=== PATIENT | female | born 1980 | race Caucasian/White ===

== ENCOUNTER 2017-03-22 20:56 | Emergency (ER) | payer SELFPAY ==
[~2017-03-22] VITALS: Ht 154.9 cm; Wt 68.0 kg
[2017-03-22 21:00] VITALS: BP_SYST 123
[2017-03-22 22:12] LABS: BILIRUBIN,URINE NEGATIVE (NEGATIVE); BLOOD, URINE NEGATIVE (NEGATIVE); CLARITY/URINE CLEAR (CLEAR); COLOR,URINE YELLOW (YELLOW); GLUCOSE,URINE NEGATIVE (NEGATIVE); KETONES,URINE NEGATIVE (NEGATIVE); LEUKOCYTE ESTERASE ,URINE 1+ (NEGATIVE); NITRITE, URINE NEGATIVE (NEGATIVE); PH,URINE 7.5 (5.0-8.0); PROTEIN URINE NEGATIVE (NEGATIVE); UROBILINOGEN,URINE 0.2 (0.2-1.0)
[2017-03-22 22:19] LABS: BACTERIA,URINE FEW /HPF (None Seen); RBC,URINE 0-3 /HPF (0-3)
[2017-03-22] MEDS ORDERED: NACL 0.9% 1,000 ML IV ONE ×2 (22:40→22:45)
[2017-03-22] MEDS ORDERED: ONDANSETRON HCL 4 MG/2 ML VIAL IVP ONE ×2 (22:45)
[2017-03-22] MEDS ORDERED: ACETAMINOPHEN 500 MG TABLET PO ONE (22:45)
[2017-03-22 23:23] LABS: BASOPHILS # (AUTO) 0.1 K/uL (0.0-0.2); EOSINOPHILS % (AUTO) 0.5 % (0.0-4.0); HEMATOCRIT 38.8 % (36-48); HEMOGLOBIN 13.1 g/dL (12.0-16.0); LYMPHOCYTES # (AUTO) 1.1 K/uL (1.0-5.5); LYMPHOCYTES % (AUTO) 19.9 % (20.5-51.5); MEAN CORPUSCULAR HEMOGLOBIN 31 pg (27-31); MEAN CORPUSCULAR HGB CONC 34 % (32-36); MEAN CORPUSCULAR VOLUME 93 fL (79.0-98.0); MONOCYTES # (AUTO) 0.1 K/uL (0.0-1.0); MONOCYTES % (AUTO) 2.5 % (1.7-9.3); NEUTROPHILS # (AUTO) 4.2 K/uL (1.8-7.7); NEUTROPHILS % (AUTO) 75.1 % (40.0-70.0); PLATELET COUNT (AUTO) 372 K/uL (130-430); RED BLOOD CELL COUNT(AUTO) 4.18 MIL/uL (4.2-6.2); RED CELL DISTRIBUTION WIDTH 12.3 % (9.0-15.0); WHITE BLOOD COUNT (AUTO) 5.5 K/uL (4.8-10.8)
[2017-03-22 23:35] LABS: CALCIUM 8.4 mg/dL (8.4-11.0); CREATININE 0.72 mg/dL (0.55-1.30); POTASSIUM 3.5 mmol/L (3.5-5.1); PROTHROMBIN TIME 10.4 SECS (9.5-12.5)
[2017-03-22 23:40] LABS: TOTAL BILIRUBIN 0.4 mg/dL (0.0-1.0)
[2017-03-23 01:10] VITALS: BP_SYST 100
== END 2017-03-23 01:10 | disposition home or self-care (01) ==
LOC: SED 20:56
DX: B34.9 Viral infection, unspecified (principal); N39.0 Urinary tract infection, site not specified; M25.50 Pain in unspecified joint
CPT/HCPCS: 36415; 80053; 81000; 81025; 82150; 83690; 85025; 85610; 85730; 86710; 87086; 96361; 96374; 99284; J2405; J7030

== ENCOUNTER 2020-09-19 18:37 | Emergency (ER) | payer BC, MEDICAID ==
[~2020-09-19] VITALS: Ht 154.9 cm; Wt 68.0 kg
--- NOTE | 2020-09-19 18:52 | NUR ---
Called patient x 1, no answer
--- NOTE | 2020-09-19 19:00 | NUR ---
Patient to ER bed 08 to gown for evaluation. Side rails up.
[2020-09-19 19:05] VITALS: BP_SYST 113
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
[2020-09-19 19:25] LABS: BILIRUBIN,URINE NEGATIVE (NEGATIVE); BLOOD, URINE 3+ (NEGATIVE); CLARITY/URINE CLEAR (CLEAR); GLUCOSE,URINE NEGATIVE (NEGATIVE); KETONES,URINE NEGATIVE (NEGATIVE); LEUKOCYTE ESTERASE ,URINE NEGATIVE (NEGATIVE); NITRITE, URINE NEGATIVE (NEGATIVE); PROTEIN URINE NEGATIVE (NEGATIVE); UROBILINOGEN,URINE 0.2 (0.2-1.0)
--- NOTE | 2020-09-19 19:25 | NUR ---
Dr Liu evaluating patient at bedside
[2020-09-19 19:31] LABS: BASOPHILS % (AUTO) 0.8 % (0.0-2.0); EOSINOPHILS # (AUTO) 0.2 K/uL (0.0-0.4); EOSINOPHILS % (AUTO) 2.8 % (0.0-4.0); HEMATOCRIT 39.2 % (36-48); HEMOGLOBIN 12.8 g/dL (12.0-16.0); MEAN CORPUSCULAR HEMOGLOBIN 31 pg (27-31); MEAN CORPUSCULAR HGB CONC 33 % (32-36); MEAN CORPUSCULAR VOLUME 94 fL (79.0-98.0); MONOCYTES # (AUTO) 0.4 K/uL (0.0-1.0); MONOCYTES % (AUTO) 7.1 % (1.7-9.3); NEUTROPHILS # (AUTO) 3.4 K/uL (1.8-7.7); NEUTROPHILS % (AUTO) 56.3 % (40.0-70.0); PLATELET COUNT (AUTO) 357 K/uL (130-430); RED BLOOD CELL COUNT(AUTO) 4.19 MIL/uL (4.2-6.2); RED CELL DISTRIBUTION WIDTH 13.3 % (9.0-15.0)
[2020-09-19 19:32] LABS: COLOR,URINE STRAW (YELLOW)
[2020-09-19 19:33] LABS: RBC,URINE 0-3 /HPF (0-3); WBC,URINE NONE SEEN /HPF (0-3)
[2020-09-19 19:34] LABS: BACTERIA,URINE FEW /HPF (None Seen); MUCUS,URINE None Seen /LPF (None Seen)
[2020-09-19] MEDS ORDERED: ACETAMINOPHEN 500 MG TABLET PO ONE (19:45)
[2020-09-19] MEDS ORDERED: ACETAMINOPHEN 500 MG TABLET ONE (19:53)
[2020-09-19 20:23] LABS: PROTHROMBIN TIME 10.4 SECS (9.5-12.5)
[2020-09-19 20:26] LABS: ANION GAP 16 (5-15); CALCIUM 8.6 mg/dL (8.4-11.0); CHLORIDE 107 mmol/L (98-107); CREATININE 0.69 mg/dL (0.55-1.30); GLUCOSE 112 mg/dL (70-99); POTASSIUM 3.7 mmol/L (3.5-5.1); SODIUM SERUM 145 mmol/L (136-145); UREA NITROGEN, BLOOD 11 mg/dL (8-21)
[2020-09-19 20:27] LABS: GFR AFRICAN AMERICAN 121 mL/min (>90)
[2020-09-19 20:32] LABS: ALANINE AMINOTRANSFERASE 20 U/L (12-78); ALBUMIN 3.9 g/dL (3.4-4.8); AMYLASE 50 U/L (0-100); ASPARTATE AMINOTRANSFERASE 20 U/L (10-37); LIPASE 165 U/L (73-393); TOTAL BILIRUBIN 0.2 mg/dL (0.0-1.0)
[2020-09-19 20:41] LABS: C-REACTIVE PROTEIN QUANT < 0.2 mg/dL (0-0.5)
[2020-09-19] MEDS ORDERED: IBUP-1969 PO (21:21)
[2020-09-19 21:34] VITALS: BP_SYST 113
--- NOTE | 2020-09-19 21:36 | NUR ---
Patient given written and verbal discharge instructions and verbalizes understanding. ER MD discussed with patient the results and treatment provided. Patient in stable condition. ID arm band removed. IV catheter removed intact and dressing applied, no active bleeding. Rx of Ibuprofen given. Patient educated on pain management and to follow up with PMD. Pain Scale 0/10 Opportunity for questions provided and answered. Medication side effect fact sheet provided.
== END 2020-09-19 21:36 | disposition home or self-care (01) ==
LOC: SED 18:37
DX: S30.1XXA Contusion of abdominal wall, initial encounter (principal); Z88.0 Allergy status to penicillin; W21.03XA Struck by baseball, initial encounter; Y93.89 Activity, other specified; Y92.89 Other specified places as the place of occurrence of the external cause; Y99.8 Other external cause status
CPT/HCPCS: 36415; 74177; 76376; 80053; 81000; 81025; 82150; 83605; 83690; 84703; 85025; 85610; 85730; 86140; 99285; Q9967

== ENCOUNTER 2020-09-23 16:05 | Emergency (ER) | payer BC ==
[~2020-09-23] VITALS: Ht 160 cm; Wt 59.0 kg
[2020-09-23 16:05] VITALS: BP_SYST 121
[~2020-09-23 16:05] MED LIST: IBUP-1969 PO
[2020-09-23] MEDS ORDERED: HYDROcodone/ACETAMIN 5-325 MG TAB (NORCO/ VICODIN) PO ONE (16:45)
[2020-09-23 16:57] LABS: MEAN CORPUSCULAR VOLUME 93 fL (79.0-98.0)
[2020-09-23 17:08] LABS: PROTHROMBIN TIME 9.9 SECS (9.5-12.5)
[2020-09-23 17:11] LABS: BASOPHILS % (AUTO) 0.6 % (0.0-2.0); EOSINOPHILS # (AUTO) 0.2 K/uL (0.0-0.4); EOSINOPHILS % (AUTO) 3.2 % (0.0-4.0); HEMATOCRIT 38.6 % (36-48); HEMOGLOBIN 12.8 g/dL (12.0-16.0); LYMPHOCYTES # (AUTO) 2.8 K/uL (1.0-5.5); LYMPHOCYTES % (AUTO) 44.9 % (20.5-51.5); MEAN CORPUSCULAR HEMOGLOBIN 31 pg (27-31); MEAN CORPUSCULAR HGB CONC 33 % (32-36); MONOCYTES # (AUTO) 0.5 K/uL (0.0-1.0); MONOCYTES % (AUTO) 7.2 % (1.7-9.3); NEUTROPHILS # (AUTO) 2.8 K/uL (1.8-7.7); NEUTROPHILS % (AUTO) 44.1 % (40.0-70.0); PLATELET COUNT (AUTO) 338 K/uL (130-430); RED BLOOD CELL COUNT(AUTO) 4.15 MIL/uL (4.2-6.2); RED CELL DISTRIBUTION WIDTH 13.3 % (9.0-15.0); WHITE BLOOD COUNT (AUTO) 6.3 K/uL (4.8-10.8)
[2020-09-23 17:13] LABS: CALCIUM 8.7 mg/dL (8.4-11.0); CREATININE 0.83 mg/dL (0.55-1.30); POTASSIUM 3.8 mmol/L (3.5-5.1)
[2020-09-23 17:22] LABS: ALBUMIN 3.6 g/dL (3.4-4.8); TOTAL BILIRUBIN 0.4 mg/dL (0.0-1.0)
[2020-09-23 17:39] LABS: C-REACTIVE PROTEIN QUANT 0.5 mg/dL (0-0.5)
[2020-09-23 18:19] VITALS: BP_SYST 121
== END 2020-09-23 18:19 | disposition home or self-care (01) ==
LOC: SED 16:05
DX: S30.1XXA Contusion of abdominal wall, initial encounter (principal); Z88.0 Allergy status to penicillin; Z79.899 Other long term (current) drug therapy; W21.03XA Struck by baseball, initial encounter; Y93.89 Activity, other specified; Y92.89 Other specified places as the place of occurrence of the external cause; Y99.8 Other external cause status
CPT/HCPCS: 36415; 74177; 76376; 80053; 83605; 85025; 85610; 85730; 86140; 99285; Q9967

== ENCOUNTER 2020-10-09 12:06 | Day surgery (SDC) | payer BC, SELFPAY ==
[2020-10-08 15:32] LABS: BASOPHILS % (AUTO) 0.5 % (0.0-2.0); EOSINOPHILS # (AUTO) 0.1 K/uL (0.0-0.4); EOSINOPHILS % (AUTO) 1.3 % (0.0-4.0); HEMATOCRIT 40.2 % (36-48); HEMOGLOBIN 13.3 g/dL (12.0-16.0); LYMPHOCYTES # (AUTO) 2.5 K/uL (1.0-5.5); LYMPHOCYTES % (AUTO) 38.4 % (20.5-51.5); MEAN CORPUSCULAR HEMOGLOBIN 31 pg (27-31); MEAN CORPUSCULAR HGB CONC 33 % (32-36); MEAN CORPUSCULAR VOLUME 93 fL (79.0-98.0); MONOCYTES # (AUTO) 0.5 K/uL (0.0-1.0); MONOCYTES % (AUTO) 7.2 % (1.7-9.3); NEUTROPHILS # (AUTO) 3.4 K/uL (1.8-7.7); NEUTROPHILS % (AUTO) 52.6 % (40.0-70.0); PLATELET COUNT (AUTO) 359 K/uL (130-430); RED BLOOD CELL COUNT(AUTO) 4.35 MIL/uL (4.2-6.2); RED CELL DISTRIBUTION WIDTH 13.6 % (9.0-15.0); WHITE BLOOD COUNT (AUTO) 6.4 K/uL (4.8-10.8)
[2020-10-08 15:47] LABS: PROTHROMBIN TIME 10.3 SECS (9.5-12.5)
[2020-10-08 15:48] LABS: ALBUMIN 3.9 g/dL (3.4-4.8); CALCIUM 8.9 mg/dL (8.4-11.0); CREATININE 0.9 mg/dL (0.55-1.30); TOTAL BILIRUBIN 0.6 mg/dL (0.0-1.0)
[~2020-10-09] VITALS: Ht 154.9 cm; Wt 68.0 kg
[2020-10-09] MEDS ORDERED: LR 1,000 ML IV.SOLN IV ONE (14:37)
[2020-10-09] MEDS ORDERED: fentaNYL CITRATE/PF 100 MCG/2 ML AMP IVP ONE (14:37)
[2020-10-09] MEDS ORDERED: DEXAMETHASONE SOD PHOSPHATE 4 MG/ML VIAL IVP ONE (14:37)
[2020-10-09] MEDS ORDERED: ceFAZolin SODIUM 1 GM VIAL IV ONE (14:37)
[2020-10-09] MEDS ORDERED: BUPIVACAINE /EPINEPHRINE/PF 0.5% 30 ML VIAL INJ ONE (14:37)
[2020-10-09] MEDS ORDERED: NS IRRIG SOLN 1000 ML IR ONE (14:37)
[2020-10-09] MEDS ORDERED: MIDAZOLAM HCL 5 MG/5 ML VIAL IVP ONE (14:37)
[2020-10-09] MEDS ORDERED: SEVOFLURANE 15 MIN GAS INH ONE (14:37)
[2020-10-09] MEDS ORDERED: METOCLOPRAMIDE HCL 10 MG/2 ML VIAL IVP ONE (14:37)
[2020-10-09] MEDS ORDERED: PROPOFOL 200MG/ 20ML VIAL (DIPRIVAN) IV ONE (14:37)
[2020-10-09] MEDS ORDERED: HYDROmorphone 1 MG/ML INJ. CARTRIDGE IVP PRN (15:15)
[2020-10-09] MEDS ORDERED: NALOXONE HCL 0.4 MG/ML AMP (NARCAN) IVP PRN (15:15)
[2020-10-09] MEDS ORDERED: HYDROmorphone 2 MG/ML VIAL IVP PRN (15:15)
[2020-10-09] MEDS ORDERED: ePHEDrine sulfate 50 MG/ML VIAL IVP PRN (15:15)
[2020-10-09] MEDS ORDERED: LR 1,000 ML IV SCH (15:15)
[2020-10-09] MEDS ORDERED: MEPERIDINE HCL/PF 25 MG/ML DISP.SYRIN IVP PRN (15:15)
[2020-10-09] MEDS ORDERED: MIDAZOLAM HCL 5 MG/5 ML VIAL IVP PRN (15:15)
[2020-10-09] MEDS ORDERED: ACETAMINOPHEN I.V. 1000 MG 100 ML IV ONE (15:16)
[2020-10-09] MEDS ORDERED: BUPIVACAINE LIPOSOME/PF 266 MG/20 ML VIAL INFIL ONE (15:20)
[2020-10-09] MEDS ORDERED: ACETAMINOPHEN 325 MG TABLET PO PRN (16:30)
[2020-10-09] MEDS ORDERED: HYDROcodone/ACETAMIN 5-325 MG TAB (NORCO/ VICODIN) PO PRN (16:30)
[2020-10-09 17:35] VITALS: BP_SYST 126
== END 2020-10-09 17:25 | disposition home or self-care (01) ==
LOC: SDS 12:06 → SMU 12:07 → SDS 17:25
PROVIDERS: ATTEND Surgery
DX: M79.81 Nontraumatic hematoma of soft tissue (principal); Z79.01 Long term (current) use of anticoagulants; Z79.899 Other long term (current) drug therapy
CPT/HCPCS: 11406; 36415; 80053; 84703; 85025; 85610; 85730; 87426; 88304; C9290; J0131; J0690; J1100; J2250; J2704; J2765; J3010; J3490; J7120

== ENCOUNTER 2022-03-03 05:57 | Emergency (ER) | payer BC ==
[~2022-03-03] VITALS: Ht 154.9 cm; Wt 71.2 kg
[2022-03-03 06:03] VITALS: BP_SYST 142
[2022-03-03] MEDS ORDERED: KETOROLAC TROMETHAMINE 30 MG VIAL IVP ONE (06:30)
[2022-03-03] MEDS ORDERED: NS 1000 ML IV.SOLN IV ONE (06:30)
[2022-03-03] MEDS ORDERED: DEXAMETHASONE SOD PHOSPHATE 10 MG/ML VIAL IVP ONE (06:45)
[2022-03-03] MEDS ORDERED: LOM2.5 PO (06:51)
[2022-03-03] MEDS ORDERED: DIPHENOXYLATE HCL/ATROP SULF 2.5 MG TAB PO ONE (07:00)
[2022-03-03 07:06] LABS: BASOPHILS % (AUTO) 0.6 % (0.0-2.0); EOSINOPHILS # (AUTO) 0.1 K/uL (0.0-0.4); EOSINOPHILS % (AUTO) 1.2 % (0.0-4.0); HEMATOCRIT 37.8 % (36-48); HEMOGLOBIN 12.6 g/dL (12.0-16.0); LYMPHOCYTES # (AUTO) 1.2 K/uL (1.0-5.5); LYMPHOCYTES % (AUTO) 14.1 % (20.5-51.5); MEAN CORPUSCULAR HEMOGLOBIN 32 pg (27-31); MEAN CORPUSCULAR HGB CONC 33 % (32-36); MEAN CORPUSCULAR VOLUME 96 fL (79.0-98.0); MONOCYTES # (AUTO) 0.4 K/uL (0.0-1.0); MONOCYTES % (AUTO) 4.5 % (1.7-9.3); NEUTROPHILS # (AUTO) 6.8 K/uL (1.8-7.7); NEUTROPHILS % (AUTO) 79.6 % (40.0-70.0); PLATELET COUNT (AUTO) 331 K/uL (130-430); RED BLOOD CELL COUNT(AUTO) 3.96 MIL/uL (4.2-6.2); RED CELL DISTRIBUTION WIDTH 13.4 % (9.0-15.0); WHITE BLOOD COUNT (AUTO) 8.5 K/uL (4.8-10.8)
[2022-03-03 07:23] LABS: INR 0.9 (0.8-1.2); PROTHROMBIN TIME 9.4 SECS (9.5-12.5)
[2022-03-03 07:27] LABS: ANION GAP 7 (5-15); CALCIUM 8.2 mg/dL (8.4-11.0); CHLORIDE 104 mmol/L (98-107); CREATININE 0.68 mg/dL (0.55-1.30); GLUCOSE 95 mg/dL (70-99); UREA NITROGEN, BLOOD 22 mg/dL (8-21)
[2022-03-03 07:28] LABS: GFR AFRICAN AMERICAN 122 mL/min (>90)
[2022-03-03 07:39] LABS: ALANINE AMINOTRANSFERASE 28 U/L (12-78); ALBUMIN 3.8 g/dL (3.4-4.8); ASPARTATE AMINOTRANSFERASE 24 U/L (10-37); TOTAL BILIRUBIN 0.5 mg/dL (0.0-1.0)
[2022-03-03 08:06] LABS: BILIRUBIN,URINE NEGATIVE (NEGATIVE); BLOOD, URINE NEGATIVE (NEGATIVE); CLARITY/URINE CLEAR (CLEAR); COLOR,URINE YELLOW (YELLOW); GLUCOSE,URINE NEGATIVE (NEGATIVE); KETONES,URINE NEGATIVE (NEGATIVE); LEUKOCYTE ESTERASE ,URINE NEGATIVE (NEGATIVE); NITRITE, URINE NEGATIVE (NEGATIVE); PROTEIN URINE NEGATIVE (NEGATIVE); UROBILINOGEN,URINE 0.2 (0.2-1.0)
== END 2022-03-03 08:45 | disposition home or self-care (01) ==
LOC: SED 05:57
DX: B34.9 Viral infection, unspecified (principal); E86.0 Dehydration; R19.7 Diarrhea, unspecified; R05.9 Cough, unspecified; R07.9 Chest pain, unspecified; R53.81 Other malaise; J45.909 Unspecified asthma, uncomplicated; Z88.0 Allergy status to penicillin; Z79.899 Other long term (current) drug therapy; Z20.822 Contact with and (suspected) exposure to COVID-19
CPT/HCPCS: 99284; 96374; 71045; 96361; 96375; 87426; 80053; 85025; 85610; 85730; 87040; 87086; 84484; 36415; 83605; 81003; 87804 ×2; J1100; J1885; J7030

== ENCOUNTER 2022-12-22 10:19 | Inpatient (IN) | payer BC ==
[~2022-12-22] VITALS: Ht 154.9 cm; Wt 72.6 kg
[~2022-12-22 10:19] MED LIST changes: +LOM2.5 PO
[2022-12-22 10:31] VITALS: BP_SYST 162; PULSE 93; RESP 18; TEMP 98; O2SAT 97
[2022-12-22] MEDS ORDERED: KETOROLAC TROMETHAMINE 30 MG VIAL IVP ONE (10:45)
[2022-12-22 10:59] LABS: BASOPHILS % (AUTO) 0.5 % (0.0-2.0); EOSINOPHILS # (AUTO) 0.2 K/uL (0.0-0.4); EOSINOPHILS % (AUTO) 2.7 % (0.0-4.0); HEMATOCRIT 40.3 % (36-48); HEMOGLOBIN 13.1 g/dL (12.0-16.0); LYMPHOCYTES # (AUTO) 3.5 K/uL (1.0-5.5); MEAN CORPUSCULAR HEMOGLOBIN 31 pg (27-31); MEAN CORPUSCULAR HGB CONC 32 % (32-36); MEAN CORPUSCULAR VOLUME 95 fL (79.0-98.0); MONOCYTES # (AUTO) 0.4 K/uL (0.0-1.0); MONOCYTES % (AUTO) 5.5 % (1.7-9.3); NEUTROPHILS # (AUTO) 3.5 K/uL (1.8-7.7); NEUTROPHILS % (AUTO) 45.3 % (40.0-70.0); PLATELET COUNT (AUTO) 337 K/uL (130-430); RED BLOOD CELL COUNT(AUTO) 4.24 MIL/uL (4.2-6.2); RED CELL DISTRIBUTION WIDTH 13.7 % (9.0-15.0); WHITE BLOOD COUNT (AUTO) 7.7 K/uL (4.8-10.8)
[2022-12-22 11:14] LABS: CALCIUM 8.7 mg/dL (8.4-11.0); CREATININE 0.77 mg/dL (0.55-1.30); POTASSIUM 3.8 mmol/L (3.5-5.1)
[2022-12-22] MEDS ORDERED: NACL 0.9% 1,000 ML IV ONE (11:15)
[2022-12-22] MEDS ORDERED: VANCOMYCIN HCL 1,000 MG in NS 250 ML IV ONE (11:15)
[2022-12-22 11:18] LABS: PROTHROMBIN TIME 10.2 SECS (9.5-12.5)
[2022-12-22 11:19] LABS: TOTAL BILIRUBIN 0.7 mg/dL (0.0-1.0); TOTAL PROTEIN, SERUM 7.3 g/dL (6.4-8.3)
[2022-12-22] MEDS ORDERED: ESCI10TA PO (11:29)
[2022-12-22] MEDS ORDERED: CIPR500T5 PO (11:29)
[2022-12-22] MEDS ORDERED: SULF1TAB48 PO (11:29)
[2022-12-22 11:33] LABS: BILIRUBIN,URINE NEGATIVE (NEGATIVE); BLOOD, URINE NEGATIVE (NEGATIVE); CLARITY/URINE Clear (CLEAR); COLOR,URINE YELLOW (YELLOW); GLUCOSE,URINE NEGATIVE (NEGATIVE); KETONES,URINE NEGATIVE (NEGATIVE); LEUKOCYTE ESTERASE ,URINE NEGATIVE (NEGATIVE); NITRITE, URINE NEGATIVE (NEGATIVE); PH,URINE 5.5 (5.0-8.0); PROTEIN URINE NEGATIVE (NEGATIVE); UROBILINOGEN,URINE 0.2 (0.2-1.0)
[2022-12-22] MEDS ORDERED: VANCOMYCIN HCL 1000 MG/VIAL IV ONE ×2 (11:51→11:59)
[2022-12-22] MEDS ORDERED: CIPROFLOXACIN LACT 400 MG/D5W 200 ML IV SCH (12:15)
[2022-12-22] MEDS ORDERED: CIPROFLOXACIN LACT 400 MG/D5W 200 ML IV ONE (13:13)
[2022-12-22] MEDS ORDERED: HYDROcodone/ACETAMIN 10-325 MG TAB PO ONE (16:45)
[2022-12-22 17:45] VITALS: BP_SYST 124; PULSE 97; RESP 16; TEMP 98.6; O2SAT 97
[2022-12-22 18:08] VITALS: BP_SYST 124; PULSE 97; RESP 16; TEMP 98.6; O2SAT 97
[2022-12-22] MEDS ORDERED: HYDROcodone/ACETAMIN 5-325 MG TAB (NORCO/ VICODIN) PO PRN (19:15)
[2022-12-22] MEDS ORDERED: HYDROcodone/ACETAMIN 10-325 MG TAB PO PRN (19:15)
[2022-12-22] MEDS ORDERED: LORazepam 2 MG/ML VIAL IVP PRN (19:15)
[2022-12-22] MEDS ORDERED: DIPHENOXYLATE HCL/ATROP SULF 2.5 MG TAB PO PRN (19:15)
[2022-12-22] MEDS ORDERED: NALOXONE HCL 0.4 MG/ML AMP (NARCAN) IVP PRN ×2 (19:15)
[2022-12-22] MEDS ORDERED: ONDANSETRON HCL 4 MG/2 ML VIAL IVP PRN (19:15)
[2022-12-22] MEDS ORDERED: ACETAMINOPHEN 325 MG TABLET PO PRN (19:30)
[2022-12-22 20:00] VITALS: BP_SYST 118; PULSE 66; RESP 17; TEMP 97.4; O2SAT 97; O2SAT 98
[2022-12-22] MEDS: CIPROFLOXACIN LACT 200 MG/D5W 100 ML IV SCH (21:20)
[2022-12-22] MEDS: NORMAL SALINE 5 ML DISP.SYRIN IVF SCH (22:00)
[2022-12-23] VITALS: BP_SYST 140; PULSE 73; RESP 18; TEMP 97.3; O2SAT 97
[2022-12-23] MEDS: ACETAMINOPHEN 325 MG TABLET PO PRN ×2 (02:17→11:10)
[2022-12-23 05:35] LABS: BASOPHILS % (AUTO) 0.6 % (0.0-2.0); EOSINOPHILS # (AUTO) 0.3 K/uL (0.0-0.4); EOSINOPHILS % (AUTO) 4.1 % (0.0-4.0); HEMATOCRIT 36.5 % (36-48); HEMOGLOBIN 11.8 g/dL (12.0-16.0); LYMPHOCYTES # (AUTO) 3.2 K/uL (1.0-5.5); LYMPHOCYTES % (AUTO) 43.9 % (20.5-51.5); MEAN CORPUSCULAR HEMOGLOBIN 31 pg (27-31); MEAN CORPUSCULAR HGB CONC 32 % (32-36); MEAN CORPUSCULAR VOLUME 96 fL (79.0-98.0); MONOCYTES # (AUTO) 0.4 K/uL (0.0-1.0); MONOCYTES % (AUTO) 6.2 % (1.7-9.3); NEUTROPHILS # (AUTO) 3.2 K/uL (1.8-7.7); NEUTROPHILS % (AUTO) 45.2 % (40.0-70.0); PLATELET COUNT (AUTO) 322 K/uL (130-430); RED CELL DISTRIBUTION WIDTH 13.7 % (9.0-15.0); WHITE BLOOD COUNT (AUTO) 7.2 K/uL (4.8-10.8)
[2022-12-23 05:44] LABS: CALCIUM 8.1 mg/dL (8.4-11.0); CREATININE 0.82 mg/dL (0.55-1.30); POTASSIUM 4.2 mmol/L (3.5-5.1)
[2022-12-23] MEDS: NORMAL SALINE 5 ML DISP.SYRIN IVF SCH ×3 (06:00→22:17)
[2022-12-23 07:00] VITALS: BP_SYST 120; PULSE 72; RESP 16; TEMP 98.5; O2SAT 96
[2022-12-23 09:00] VITALS: BP_SYST 120; PULSE 72; RESP 16; TEMP 98.5; O2SAT 96
[2022-12-23] MEDS: CITALOPRAM HYDROBROMIDE 20 MG TABLET PO SCH ×2 (09:00→10:59)
[2022-12-23] MEDS ORDERED: ESCITALOPRAM OXALATE 10 MG TABLET PO SCH (09:00)
[2022-12-23] MEDS: CIPROFLOXACIN LACT 200 MG/D5W 100 ML IV SCH (09:11)
[2022-12-23] MEDS ORDERED: CLINDAMYCIN HCL 150 MG CAPSULE PO ONE (12:30)
[2022-12-23] MEDS ORDERED: LACTOBACILLUS RHAMNOSUS GG 1 CAP CAPSULE PO ONE (12:30)
[2022-12-23] MEDS ORDERED: SACCHAROMYCES BOULARDII 250 MG CAPSULE (FLORASTOR) PO SCH (12:30)
[2022-12-23] MEDS ORDERED: CEFTAROLINE FOSAMIL ACETATE 600 MG in NS 250 ML IV ONE (13:00)
[2022-12-23] MEDS: CLINDAMYCIN HCL 150 MG CAPSULE PO SCH (19:50)
[2022-12-23 20:00] VITALS: BP_SYST 114; PULSE 68; RESP 17; TEMP 98.6; O2SAT 97; O2SAT 98
[2022-12-23] MEDS: CEFTAROLINE FOSAMIL ACETATE 600 MG in NS 250 ML IV SCH (21:45)
[2022-12-23] MEDS ORDERED: KETOROLAC TROMETHAMINE 15 MG VIAL IVP PRN (22:15)
[2022-12-23] MEDS: LACTOBACILLUS RHAMNOSUS GG 1 CAP CAPSULE PO SCH (22:16)
[2022-12-24] VITALS: BP_SYST 101; PULSE 90; RESP 17; TEMP 98.5; O2SAT 97
[2022-12-24] MEDS: CLINDAMYCIN HCL 150 MG CAPSULE PO SCH ×5 (00:02→23:27)
[2022-12-24] MEDS: NORMAL SALINE 5 ML DISP.SYRIN IVF SCH ×3 (05:20→21:02)
[2022-12-24 07:06] LABS: BASOPHILS % (AUTO) 0.6 % (0.0-2.0); EOSINOPHILS # (AUTO) 0.3 K/uL (0.0-0.4); EOSINOPHILS % (AUTO) 4.8 % (0.0-4.0); HEMOGLOBIN 12.1 g/dL (12.0-16.0); LYMPHOCYTES # (AUTO) 2.6 K/uL (1.0-5.5); LYMPHOCYTES % (AUTO) 42.1 % (20.5-51.5); MEAN CORPUSCULAR HEMOGLOBIN 31 pg (27-31); MEAN CORPUSCULAR HGB CONC 33 % (32-36); MEAN CORPUSCULAR VOLUME 96 fL (79.0-98.0); MONOCYTES # (AUTO) 0.4 K/uL (0.0-1.0); MONOCYTES % (AUTO) 6.7 % (1.7-9.3); NEUTROPHILS # (AUTO) 2.9 K/uL (1.8-7.7); NEUTROPHILS % (AUTO) 45.8 % (40.0-70.0); PLATELET COUNT (AUTO) 325 K/uL (130-430); RED BLOOD CELL COUNT(AUTO) 3.87 MIL/uL (4.2-6.2); RED CELL DISTRIBUTION WIDTH 13.7 % (9.0-15.0); WHITE BLOOD COUNT (AUTO) 6.2 K/uL (4.8-10.8)
[2022-12-24 07:46] LABS: ALBUMIN 3.4 g/dL (3.4-4.8); CALCIUM 8.4 mg/dL (8.4-11.0); CREATININE 0.81 mg/dL (0.55-1.30); POTASSIUM 4.4 mmol/L (3.5-5.1); TOTAL BILIRUBIN 0.3 mg/dL (0.0-1.0); TOTAL PROTEIN, SERUM 6.2 g/dL (6.4-8.3)
[2022-12-24 07:59] LABS: ERYTHROCYTE SEDIMENTATION RATE 4 MM/HR (0-20)
[2022-12-24 08:00] VITALS: BP_SYST 104; PULSE 76; RESP 18; TEMP 98.1; O2SAT 96; O2SAT 98
[2022-12-24] MEDS: LACTOBACILLUS RHAMNOSUS GG 1 CAP CAPSULE PO SCH ×2 (09:39→21:01)
[2022-12-24] MEDS: CEFTAROLINE FOSAMIL ACETATE 600 MG in NS 250 ML IV SCH ×2 (09:40→21:01)
[2022-12-24 12:00] VITALS: BP_SYST 106; PULSE 86; RESP 16; TEMP 98.4; O2SAT 98
[2022-12-24 16:29] VITALS: BP_SYST 105; PULSE 79; RESP 17; TEMP 98.2; O2SAT 97
[2022-12-24] MEDS ORDERED: HONEY WOUND DRESSING 1 EACH TP SCH (16:30)
[2022-12-24 19:00] VITALS: BP_SYST 103; PULSE 80; RESP 16; TEMP 97.9; O2SAT 97
[2022-12-24 20:00] VITALS: BP_SYST 119; PULSE 70; RESP 18; TEMP 98.4; O2SAT 97
[2022-12-24] MEDS: ACETAMINOPHEN 325 MG TABLET PO PRN (23:28)
[2022-12-25 01:06] VITALS: BP_SYST 126; PULSE 72; RESP 17; TEMP 97.5; O2SAT 97
[2022-12-25 05:31] LABS: ERYTHROCYTE SEDIMENTATION RATE 4 MM/HR (0-20)
[2022-12-25 05:34] LABS: BASOPHILS % (AUTO) 0.5 % (0.0-2.0); EOSINOPHILS # (AUTO) 0.3 K/uL (0.0-0.4); EOSINOPHILS % (AUTO) 4.2 % (0.0-4.0); HEMATOCRIT 39.7 % (36-48); HEMOGLOBIN 12.9 g/dL (12.0-16.0); LYMPHOCYTES # (AUTO) 1.3 K/uL (1.0-5.5); MEAN CORPUSCULAR HEMOGLOBIN 31 pg (27-31); MEAN CORPUSCULAR HGB CONC 33 % (32-36); MEAN CORPUSCULAR VOLUME 95 fL (79.0-98.0); MONOCYTES # (AUTO) 0.2 K/uL (0.0-1.0); MONOCYTES % (AUTO) 3.2 % (1.7-9.3); NEUTROPHILS # (AUTO) 5.6 K/uL (1.8-7.7); NEUTROPHILS % (AUTO) 75.1 % (40.0-70.0); PLATELET COUNT (AUTO) 363 K/uL (130-430); RED BLOOD CELL COUNT(AUTO) 4.19 MIL/uL (4.2-6.2); RED CELL DISTRIBUTION WIDTH 13.8 % (9.0-15.0); WHITE BLOOD COUNT (AUTO) 7.4 K/uL (4.8-10.8)
[2022-12-25 05:36] LABS: CALCIUM 8.6 mg/dL (8.4-11.0); CREATININE 0.83 mg/dL (0.55-1.30); POTASSIUM 4.3 mmol/L (3.5-5.1)
[2022-12-25] MEDS: CLINDAMYCIN HCL 150 MG CAPSULE PO SCH ×2 (05:49→12:27)
[2022-12-25] MEDS: NORMAL SALINE 5 ML DISP.SYRIN IVF SCH (05:49)
[2022-12-25 08:00] VITALS: BP_SYST 106; PULSE 75; RESP 17; TEMP 98.2; O2SAT 97
[2022-12-25] MEDS: LACTOBACILLUS RHAMNOSUS GG 1 CAP CAPSULE PO SCH (09:10)
[2022-12-25] MEDS: CEFTAROLINE FOSAMIL ACETATE 600 MG in NS 250 ML IV SCH (09:10)
[2022-12-25] MEDS: CITALOPRAM HYDROBROMIDE 20 MG TABLET PO SCH (09:10)
[2022-12-25] MEDS: ACETAMINOPHEN 325 MG TABLET PO PRN (09:39)
[2022-12-25] MEDS ORDERED: [UNRECOGNIZED DRUG - OTHER] TP (11:35)
[2022-12-25] MEDS ORDERED: HONE15GE TP (11:35)
[2022-12-25] MEDS ORDERED: LACT1CAP57 PO (11:35)
[2022-12-25] MEDS ORDERED: DOXY100T2 PO (11:35)
[2022-12-25 12:00] VITALS: BP_SYST 116; PULSE 73; RESP 18; TEMP 98; O2SAT 98
[2022-12-25 13:09] VITALS: BP_SYST 106; PULSE 75; RESP 18; TEMP 98.2; O2SAT 97
== END 2022-12-25 15:05 | disposition home or self-care (01) | DRG 863 ==
LOC: SED 10:19 → SMU 16:03
PROVIDERS: ADMIT Preventive Medicine Preventive Medicine/Occupational Environmental Medicine; ATTEND Preventive Medicine Preventive Medicine/Occupational Environmental Medicine
DX: T81.41XA Infection following a procedure, superficial incisional surgical site, initial encounter (principal); T81.30XA Disruption of wound, unspecified, initial encounter; N61.0 Mastitis without abscess; J45.909 Unspecified asthma, uncomplicated; Y83.8 Other surgical procedures as the cause of abnormal reaction of the patient, or of later complication, without mention of misadventure at the time of the procedure; F17.210 Nicotine dependence, cigarettes, uncomplicated; E83.51 Hypocalcemia; D64.9 Anemia, unspecified; E66.9 Obesity, unspecified; Z88.0 Allergy status to penicillin; Z79.899 Other long term (current) drug therapy; Y92.89 Other specified places as the place of occurrence of the external cause; Z86.16 Personal history of COVID-19; Z98.51 Tubal ligation status; Z68.30 Body mass index [BMI] 30.0-30.9, adult
CPT/HCPCS: 36415; 71260-TC; 76376; 80048; 80053; 81003; 83605; 85025; 85610-TC; 85651-TC; 85730-TC; 87040; 87070-TC; 87075-TC; 87086; 96365; 96375; 99285; J0712; J0744; J1885; J3370; J7050; Q9967

== ENCOUNTER 2023-04-15 13:07 | Emergency (ER) | payer BC ==
[~2023-04-15] VITALS: Ht 154.9 cm; Wt 71.2 kg
[~2023-04-15 13:07] MED LIST changes: +DOXY100T2 PO; +ESCI10TA PO; +HONE15GE TP; +LACT1CAP57 PO; +[UNRECOGNIZED DRUG - OTHER] TP
[2023-04-15 13:38] VITALS: BP_SYST 148; PULSE 88; RESP 16; TEMP 97.6; O2SAT 98
[2023-04-15] MEDS ORDERED: DIPH-TET Vacc 0.5 ML VIAL I.M. ONE (14:15)
[2023-04-15] MEDS ORDERED: IBUPROFEN 600 MG TABLET PO ONE (14:15)
[2023-04-15] MEDS ORDERED: DIPHTH,PERTUSS(ACELL),TET VAC 0.5 ML VIAL (Tdap) I.M. ONE ×2 (15:28→15:45)
[2023-04-15] MEDS ORDERED: LIDOCAINE 1%, 20 ML MDV 20 ML ONE (15:53)
[2023-04-15] MEDS ORDERED: BACITRACIN 1 GM OINT TP ONE (16:00)
[2023-04-15] MEDS ORDERED: LIDOCAINE 1% 10 MG/ML, 20 ML MDV INJ ONE (16:00)
[2023-04-15] MEDS ORDERED: IBUP-1969 PO (16:03)
[2023-04-15] MEDS ORDERED: TRAM50TA2 PO (16:03)
[2023-04-15 16:39] VITALS: BP_SYST 148; PULSE 88; RESP 16; TEMP 97.6; O2SAT 98
== END 2023-04-15 16:25 | disposition home or self-care (01) ==
LOC: SED 13:07
DX: S63.633A Sprain of interphalangeal joint of left middle finger, initial encounter (principal); S61.213A Laceration without foreign body of left middle finger without damage to nail, initial encounter; J45.909 Unspecified asthma, uncomplicated; F17.210 Nicotine dependence, cigarettes, uncomplicated; Z88.0 Allergy status to penicillin; Z79.899 Other long term (current) drug therapy; W23.1XXA Caught, crushed, jammed, or pinched between stationary objects, initial encounter; Y93.89 Activity, other specified; Y92.89 Other specified places as the place of occurrence of the external cause; Y99.8 Other external cause status
CPT/HCPCS: 99283; 73130; 90471; 12001; J2001; 90715